=== PATIENT | female | born 1985 | race African-American/Black ===

== ENCOUNTER 2020-09-27 10:11 | Emergency (ER) | payer OTHER ==
[~2020-09-27] VITALS: Ht 175.3 cm; Wt 113.4 kg
[2020-09-27] MEDS ORDERED: NOHOMEMEDICATIONS (10:36)
[2020-09-27] MEDS ORDERED: BACTRIM DS TAB1 EACH PO ×2 (11:40→11:50)
[2020-09-27] MEDS ORDERED: MOBIC15 MG PO (11:41)
[2020-09-27 11:55] VITALS: BP 135/59
== END 2020-09-27 11:55 | disposition home or self-care (01) ==
LOC: ER 10:11
DX: L02.31 Cutaneous abscess of buttock (principal)